=== PATIENT | male | born 1950 | race Caucasian/White ===

== ENCOUNTER → 2017-06-28 16:42 | Outpatient (CLI) | payer MEDICARE, BC ==
[2017-06-28 18:01] LABS: CHOL - HDL RATIO 4.3 ratio (2.3-4.9); LDL-HDL RATIO 2.7 ratio (1.5-3.5)
== END | disposition home or self-care (01) ==
LOC: D.LABREF 16:42
PROVIDERS: Internal Medicine Cardiovascular Disease
DX: E78.5 Hyperlipidemia, unspecified (principal)

== ENCOUNTER → 2018-03-27 11:52 | Outpatient (CLI) | payer MEDICARE, BC | END | disposition home or self-care (01) | LOC: D.US 11:52 | DX: I82.402 Acute embolism and thrombosis of unspecified deep veins of left lower extremity (principal) ==

== ENCOUNTER 2019-04-01 14:19 | Inpatient (IN) | payer MEDICARE, BC ==
[~2019-04-01] VITALS: Ht 177.8 cm; Wt 156.8 kg
--- NOTE | 2019-04-01 15:00 | NUR ---
RECEIVED PT DIRECT ADMIT. C/O LOWER BACK PAIN. NO S/S OF ACUTE DISTRESS NOTED. VITALS STABLE. IV SITED TO LEFT FOREARM, X2 STICKS. NS INFUSING @ 50ML/HR. SITE PATENT WITHOUT REDNESS OR SWELLING. PT DENIES ANY NEEDS. CALL LIGHT IN REACH. WILL CONTINUE TO MONITOR.
[2019-04-01 15:21] LABS: BASOPHILS 0.3 % (0-2); EOSINOPHILS 0.4 % (0-7); HEMATOCRIT 38.4 % (42.0-54.0); HEMOGLOBIN 12.7 g/dL (13.5-17.5); IMMATURE GRANULOCYTES 0.7 % (0-5); LYMPHOCYTES 19.4 % (15-50); MCH 28.9 pg (26.0-34.0); MCHC 33.1 g/dL (31.0-37.0); MCV 87.5 fL (80.0-100.0); MEAN PLATELET VOLUME 10.2 fL (7.4-10.4); MONOCYTES 6.1 % (2-11); NEUTROPHILS 73.1 % (40-80); PLATELET COUNT 152 10x3/uL (130-400); RBC 4.39 10x6/uL (4.20-6.10); RDW 13.8 % (11.5-14.5); WBC 6.9 10x3/uL (4.8-10.8)
[2019-04-01 15:28] LABS: INR 1.22 (0.85-1.17); PROTIME 14.8 SECONDS (11.6-15.0)
[2019-04-01 15:42] LABS: ALBUMIN 3.9 g/dL (3.4-5.0); ALKALINE PHOSPHATASE 81 U/L (46-116); ALT (SGPT) 28 U/L (10-68); BILIRUBIN - TOTAL 0.39 mg/dL (0.2-1.3); CALC OSMOLALITY 282 mosm/kg (275-300); CALCIUM 9.2 mg/dL (8.5-10.1); CARBON DIOXIDE 30.4 mmol/L (21.0-32.0); CHLORIDE - SERUM 102 mmol/L (98-107); GLUCOSE 120 mg/dL (74-106); POTASSIUM - SERUM 4.1 mmol/L (3.5-5.1); PROTEIN - SERUM 6.8 g/dL (6.4-8.2); SODIUM 141 mmol/L (136-145); UREA NITROGEN 14 mg/dL (7-18); eGFR NON AFRICAN AMERICAN 79 mL/min (90-120)
[2019-04-01 15:50] LABS: C-REACTIVE PROTEIN 0.2 mg/dL (0.0-0.9)
[2019-04-01 16:39] LABS: ERYTHROCYTE SEDIMENTATION RATE 14 mm/hr (0-20)
--- NOTE | 2019-04-01 18:22 | NUR ---
PT HAVING AN MRI, NOT BACK IN ROOM.
[2019-04-01 20:14] VITALS: BP 173/74
--- NOTE | 2019-04-01 20:20 | NUR ---
LYING IN BED. ALERT AND ORIENTED X4. RESP EVEN AND NONLABORED. REPORTS PAIN IN BACK 2 ON PAIN SCALE. AMB WITH CANE. IV INFILTRATED AND REMOVED PER OFFGOING NURSE. PT REFUSED TO HAVE IV RESTARTED. NOTIFIED FRANTZ SWANSON OF THIS. SR ELEVATED X2. CL IN REACH.
--- NOTE | 2019-04-01 22:45 | NUR ---
MEDICATED WITH PERCOCET ORDERED FOR C/O BACK PAIN. SR ELEVATED X2. CL IN REACH.
[2019-04-01 22:48] VITALS: BP 173/74; Ht 177.8 cm; Wt 156.8 kg
[2019-04-02 00:41] VITALS: BP 175/87
--- NOTE | 2019-04-02 02:39 | NUR ---
HAS RESTED WELL TONIGHT. CPAP IN USE. NO DISTRESS. CL IN REACH.
[2019-04-02 04:35] VITALS: BP 142/78
--- NOTE | 2019-04-02 04:45 | NUR ---
RESTING WITH EYES CLOSED. RESP EVEN AND NONLABORED. CPAP IN USE. NO DISTRESS. CL IN REACH.
--- NOTE | 2019-04-02 05:48 | NUR ---
MEDICATED WITH PERCOCET FOR C/O PAIN IN BACK RATING 2. STATES HE SLEPT WELL IN HIS BED AND HIS BACK WAS FEELING BETTER. CL IN REACH.
[2019-04-02 06:55] LABS: BASOPHILS 0.2 % (0-2); EOSINOPHILS 0.6 % (0-7); HEMATOCRIT 35.2 % (42.0-54.0); HEMOGLOBIN 11.4 g/dL (13.5-17.5); IMMATURE GRANULOCYTES 0.6 % (0-5); LYMPHOCYTES 34.8 % (15-50); MCH 28.1 pg (26.0-34.0); MCHC 32.4 g/dL (31.0-37.0); MCV 86.9 fL (80.0-100.0); MEAN PLATELET VOLUME 10.5 fL (7.4-10.4); MONOCYTES 8.7 % (2-11); NEUTROPHILS 55.1 % (40-80); PLATELET COUNT 134 10x3/uL (130-400); RBC 4.05 10x6/uL (4.20-6.10); RDW 13.8 % (11.5-14.5)
[2019-04-02 07:24] LABS: ALBUMIN 3.2 g/dL (3.4-5.0); ALKALINE PHOSPHATASE 67 U/L (46-116); ALT (SGPT) 25 U/L (10-68); BILIRUBIN - TOTAL 0.44 mg/dL (0.2-1.3); CALC OSMOLALITY 282 mosm/kg (275-300); CALCIUM 8.7 mg/dL (8.5-10.1); CARBON DIOXIDE 30.3 mmol/L (21.0-32.0); CHLORIDE - SERUM 105 mmol/L (98-107); CREATININE - SERUM 0.9 mg/dL (0.6-1.3); GLUCOSE 109 mg/dL (74-106); POTASSIUM - SERUM 4.2 mmol/L (3.5-5.1); PROTEIN - SERUM 5.8 g/dL (6.4-8.2); SODIUM 141 mmol/L (136-145); UREA NITROGEN 15 mg/dL (7-18); eGFR NON AFRICAN AMERICAN 89 mL/min (90-120)
[2019-04-02 08:28] VITALS: BP 161/69
--- NOTE | 2019-04-02 10:47 | NUR ---
PATIENT RESTING WITH NO DISTRESS. REPORTS PAIN WITH MOVEMENT TO BACK, PERCOCET RELIEVES PAIN. PATIENT IS SCHEDULED FOR EPIDURAL STEROIDS IN AM.
[2019-04-02] MEDS ORDERED: PERCOCET 10-321 EAC1 PO (11:12)
[2019-04-02] MEDS ORDERED: XARELTO20 MG PO (11:20)
[2019-04-02] MEDS ORDERED: OMEPRAZOLE CAP 20M (11:21)
[2019-04-02] MEDS ORDERED: PIOGLITAZONE15 MG PO (11:21)
[2019-04-02] MEDS ORDERED: GLYBURIDE MICRON3 MG PO (11:21)
[2019-04-02] MEDS ORDERED: SHINGRIX (11:21)
[2019-04-02] MEDS ORDERED: TENORMIN50 MG PO (11:22)
[2019-04-02] MEDS ORDERED: NEURONTIN 300300 MG PO (11:22)
[2019-04-02] MEDS ORDERED: K-DUR20 MEQ PO (11:23)
[2019-04-02] MEDS ORDERED: LOSARTAN/HCT TAB 100 ×2 (11:23→11:24)
[2019-04-02] MEDS ORDERED: METFORMIN HCL500 M1 PO (11:23)
[2019-04-02] MEDS ORDERED: FUROSEMIDE40 MG PO (11:23)
[2019-04-02] MEDS ORDERED: MEDROL DOSE PACK4 MG (11:23)
[2019-04-02] MEDS ORDERED: ROBAXIN500 MG PO (11:31)
[2019-04-02] MEDS ORDERED: COZAAR100 MG PO (11:32)
[2019-04-02 12:37] VITALS: BP 150/67
--- NOTE | 2019-04-02 16:33 | MORECARE ---
CASE MANAGEMENT DISCHARGE SUMMARY PATIENT: VICTOR MANUEL PAIGE UNIT: [id number] ADM DATE: 04/01/19 AGE: 68 : 50 SEX: M ROOM/BED: D.2240 AUTHOR: JOSE D,DOC PHYSICIAN: REFERRING PHYSICIAN: DALE GREENBERG MD DATE OF SERVICE: 04/02/19 Discharge Plan Patient Name: VICTOR MANUEL PAIGE Facility: [facility]:[place] : 1950 Planned Disposition: Home Anticipated Discharge Date: 04/03/19 Discharge Date: Expected LOS: 2 Initial Reviewer: [email or web address] Initial Review Date: 04/02/2019 Generated: 04/02/19 5:33 pm Comments DCP- Discharge Planning Updated by [email or web address]: Nanda Hall on 04/02/19 3:[address] Patient Name: VICTOR MANUEL PAIGE Admission Status: Elective Accout number: [id number] Admission Date: 04-01-2019 : 1950 Admission Diagnosis:INTERVERTEBRAL DISC DISORDERS W RADICULOPATHY, LUMBAR R Attending: YARI, Current LOS: 1 Anticipated DC Date: 04-03-2019 Planned Disposition: Home Primary Insurance: MEDICARE A & B Discharge Planning Comments: CM met with patient to complete initial dc planning assessment. CM educated patient on the CM role and verbal consent given by patient to complete assessment. Patient lives at home with his . At discharge patient plans to return home and feels this is a safe discharge. CM discussed the availability of rehab services, home health and medical equipment. Patient denies any discharge needs at this time. CM will continue to follow and assist with discharge planning/needs. Die Inspector: Nanda Hall DCPIA - Discharge Planning Initial Assessment Updated by [email or web address]: Nanda Hall on 04/02/19 4:25 pm * Is the patient Alert and Oriented? Yes * How many steps to enter\exit or inside your home? 3/0 * PCP Dr. Greenberg * Pharmacy [facility] * Preadmission Environment Home with Family * ADLs Partial Dependent * Partial ADLs (Assistance needed) Ambulation * Equipment Cane CPAP * List name and contact numbers for known caregivers / representatives who currently or will assist patient after discharge: Jessica Paige - spouse - [phone] * Verbal permission to speak to the caregivers and representatives has been obtained from the patient. Yes * Community resources currently utilized None * Additional services required to return to the preadmission environment? No * Can the patient safely return to the preadmission environment? Yes * Has this patient been hospitalized within the prior 30 days at any hospital? No Patient Name: VICTOR MANUEL PAIGE Page [id number] at 1633 All edits/amendments must be made on the electronic document DICTATION DATE: 04/02/19 163 SERVICE CONTROL OPERATOR: CHERRI 04/02/19 1633 RPT#: [id number] DC DATE: STATUS: ADM IN [facility] [address] [place] [address] END OF REPORT
[2019-04-02 16:45] VITALS: BP 153/56
--- NOTE | 2019-04-02 20:00 | NUR ---
ALERT SITTING UP ON SIDE OF BED, REPORTS BACK PAIN WITH MOVEMENT, SEE SHIFT ASSESSMENT, CALL LIGHT IN REACH
[2019-04-02 20:47] VITALS: BP 164/80
[2019-04-03 00:36] VITALS: BP 178/80
[2019-04-03 05:08] VITALS: BP 163/82
--- NOTE | 2019-04-03 07:37 | NUR ---
ALERT AND ORIENTED. LUNGS CLEAR BILATERALLY IN ALL CHOI. HEART SOUNDS S1 AND S2 HEARD IN ALL CHOI. BOWEL SOUNDS ACTIVE X 4. SKIN INTACT WITHOUT REDNESS. NO IV. STATES IV OUT X 2 DAYS AND DOES NOT NEED OR WANT NEW IV. DENIES PAIN. DENIES NEEDS. BED LOW. CALL POST AND PERSONAL ITEMS IN REACH. WILL CONTINUE TO MONITOR.
[2019-04-03 07:42] LABS: BASOPHILS 0.2 % (0-2); EOSINOPHILS 0.5 % (0-7); HEMATOCRIT 37.9 % (42.0-54.0); HEMOGLOBIN 12.5 g/dL (13.5-17.5); IMMATURE GRANULOCYTES 0.9 % (0-5); LYMPHOCYTES 27.7 % (15-50); MCH 28.7 pg (26.0-34.0); MCV 87.1 fL (80.0-100.0); MEAN PLATELET VOLUME 10.6 fL (7.4-10.4); MONOCYTES 7.8 % (2-11); NEUTROPHILS 62.9 % (40-80); PLATELET COUNT 145 10x3/uL (130-400); RBC 4.35 10x6/uL (4.20-6.10); WBC 5.7 10x3/uL (4.8-10.8)
[2019-04-03 08:03] LABS: ALBUMIN 3.7 g/dL (3.4-5.0); ALKALINE PHOSPHATASE 76 U/L (46-116); ALT (SGPT) 28 U/L (10-68); BILIRUBIN - TOTAL 0.51 mg/dL (0.2-1.3); CALC OSMOLALITY 284 mosm/kg (275-300); CARBON DIOXIDE 32.3 mmol/L (21.0-32.0); CHLORIDE - SERUM 103 mmol/L (98-107); CREATININE - SERUM 0.9 mg/dL (0.6-1.3); GLUCOSE 109 mg/dL (74-106); PROTEIN - SERUM 6.6 g/dL (6.4-8.2); SODIUM 142 mmol/L (136-145); UREA NITROGEN 16 mg/dL (7-18); eGFR NON AFRICAN AMERICAN 89 mL/min (90-120)
[2019-04-03 08:50] VITALS: BP 141/72
--- NOTE | 2019-04-03 09:40 | NUR ---
SPOKE WITH PHARMACY ABOUT PT DIABETA NOT AVAILABLE. STATED WILL BRING TO FLOOR.
--- NOTE | 2019-04-03 10:34 | NUR ---
RESTING IN BED. DENIES PAIN. DENIES NEEDS. WILL CONTINUE TO MONITOR.
[2019-04-03] MEDS ORDERED: MIRALAX17 GM PO (10:57)
[2019-04-03] MEDS ORDERED: DULCOLAX10 MG/SUPP RC (10:57)
[2019-04-03] MEDS ORDERED: COLACE100 MG PO (10:57)
[2019-04-03] MEDS ORDERED: LOVENOX40 MG/0.4 SC (10:57)
--- NOTE | 2019-04-03 11:23 | NUR ---
PATIENT STATES DOES NOT WANT FENTANYL PATCH UNTIL GETS TO HOSPITAL.
[2019-04-03] MEDS ORDERED: DURAGESIC1 PATCH .7 TRANSDERM (11:28)
[2019-04-03 12:14] VITALS: BP 150/63
[2019-04-03] MEDS ORDERED: ROBAXIN500 MG PO (12:53)
--- NOTE | 2019-04-03 14:10 | MORECARE ---
CASE MANAGEMENT DISCHARGE SUMMARY PATIENT: VICTOR MANUEL PAIGE UNIT: [id number] ADM DATE: 04/01/19 AGE: 68 : 50 SEX: M ROOM/BED: D.2240 AUTHOR: JOSE DDOC PHYSICIAN: REFERRING PHYSICIAN: DALE GREENBERG MD DATE OF SERVICE: 04/03/19 Discharge Plan Patient Name: VICTOR MANUEL PAIGE Facility: [facility]:[place] : 1950 Planned Disposition: Home Anticipated Discharge Date: 04/03/19 Discharge Date: Expected LOS: 2 Initial Reviewer: [email or web address] Initial Review Date: 04/02/2019 Generated: 04/03/19 3:10 pm Comments DCP- Discharge Planning Updated by [id number]: Nanda Hall on 04/03/19 1:[address] Patient Name: VICTOR MANUEL PAIGE Encounter No: [id number] : 1950 Primary Insurance: MEDICARE A & B Anticipated DC Date: 04-03-2019 Planned Disposition: Home External Planned Provider: : DCP follow-up note: Patient and family in agreement with discharge plan. No changes to plan. Case management will follow and assist as needed. Nanda Hall DCP- Discharge Planning Updated by [email or web address]: Nanda Hall on 04/02/19 3:[address] Patient Name: VICTOR MANUEL PAIGE Admission Status: Elective Accout number: [id number] Admission Date: 04-01-2019 : 1950 Admission Diagnosis:INTERVERTEBRAL DISC DISORDERS W RADICULOPATHY, LUMBAR R Attending: YARI, Current LOS: 1 Anticipated DC Date: 04-03-2019 Planned Disposition: Home Primary Insurance: MEDICARE A & B Discharge Planning Comments: CM met with patient to complete initial dc planning assessment. CM educated patient on the CM role and verbal consent given by patient to complete assessment. Patient lives at home with his . At discharge patient plans to return home and feels this is a safe discharge. CM discussed the availability of rehab services, home health and medical equipment. Patient denies any discharge needs at this time. CM will continue to follow and assist with discharge planning/needs. Inspector Coated Fabrics: Nanda Hall DCPIA - Discharge Planning Initial Assessment Updated by [email or web address]: Nanda Hall on 04/02/19 4:25 pm * Is the patient Alert and Oriented? Yes * How many steps to enter\exit or inside your home? 3/0 * PCP Dr. Greenberg * Pharmacy [facility] * Preadmission Environment Home with Family * ADLs Partial Dependent * Partial ADLs (Assistance needed) Ambulation * Equipment Cane CPAP * List name and contact numbers for known caregivers / representatives who currently or will assist patient after discharge: Jessica Paige - spouse - [phone] * Verbal permission to speak to the caregivers and representatives has been obtained from the patient. Yes * Community resources currently utilized None * Additional services required to return to the preadmission environment? No * Can the patient safely return to the preadmission environment? Yes * Has this patient been hospitalized within the prior 30 days at any hospital? No Coverage Notice Reviewer: [email or web address] Regulo Hall Notice Issued Date-Time: 04/03/2019 12:00 Notice Type: IM Discharge Notice Notice Delivered To: Patient Relationship to Patient: Self Sawmill Moulder Operator Name: Delivery Method: HAND - Hand Delivered Riana Days: Prior Verbal Notification: Recipient Understood Notice: Yes Recipient Signature: Yes Med Rec Note Co-signed by Attending: Coverage Notice Comment: IMM explained, signed, given, copy placed in MR Last DP export: 04/02/19 3:33 pm Patient Name: VICTOR MANUEL PAIGE Page [id number] at 1410 All edits/amendments must be made on the electronic document DICTATION DATE: 04/03/191408 SIDE STAPLER: CHERRI 04/03/191408 RPT#: [id number] DC DATE: STATUS: ADM IN [facility] [address] [place] [address] END OF REPORT
--- NOTE | 2019-04-03 14:25 | NUR ---
DISCHARGE EDUCATION PROVIDED BOTH WRITTEN AND VERBAL. VERBALIZED UNDERSTANDING. DENIES FURTHER QUESTIONS. AT BEDSIDE VERBALIZED UNDERSTANDING. PATIENT REFUSES FENTANYL PATCH. DENIES FURTHER NEEDS. PATIENT DISCHARGED HOME WITH WITH ALL BELONGINGS.
--- NOTE | 2019-04-07 12:41 | MORECARE ---
CASE MANAGEMENT DISCHARGE SUMMARY PATIENT: VICTOR MANUEL PAIGE UNIT: [id number] ADM DATE: 04/01/19 AGE: 68 : 50 SEX: M ROOM/BED: D.2240 AUTHOR: JOSE DDOC PHYSICIAN: REFERRING PHYSICIAN: DALE GREENBERG MD DATE OF SERVICE: 04/07/19 Discharge Plan Patient Name: VICTOR MANUEL PAIGE Facility: [facility]:[place] : 1950 Planned Disposition: Home Anticipated Discharge Date: 04/03/19 Discharge Date: 04/03/2019 Expected LOS: 2 Initial Reviewer: [email or web address] Initial Review Date: 04/02/2019 Generated: 04/07/19 1:40 pm DCP- Discharge Planning Updated by [email or web address]: Nanda Hall on 04/03/19 1:[address] Patient Name: VICTOR MANUEL PAIGE Encounter No: [id number] : 1950 Primary Insurance: MEDICARE A & B Anticipated DC Date: 04-03-2019 Planned Disposition: Home External Planned Provider: : DCP follow-up note: Patient and family in agreement with discharge plan. No changes to plan. Case management will follow and assist as needed. Nanda Hall DCP- Discharge Planning Updated by [email or web address]: Nanda Hall on 04/02/19 3:[address] Patient Name: VICTOR MANUEL PAIGE Admission Status: Elective Accout number: [id number] Admission Date: 04-01-2019 : 1950 Admission Diagnosis:INTERVERTEBRAL DISC DISORDERS W RADICULOPATHY, LUMBAR R Attending: YARI, Current LOS: 1 Anticipated DC Date: 04-03-2019 Planned Disposition: Home Primary Insurance: MEDICARE A & B Discharge Planning Comments: CM met with patient to complete initial dc planning assessment. CM educated patient on the CM role and verbal consent given by patient to complete assessment. Patient lives at home with his . At discharge patient plans to return home and feels this is a safe discharge. CM discussed the availability of rehab services, home health and medical equipment. Patient denies any discharge needs at this time. CM will continue to follow and assist with discharge planning/needs. Educator Senior Clinical: Nanda Hall DCPIA - Discharge Planning Initial Assessment Updated by [email or web address]: Nanda Hall on 04/02/19 4:25 pm * Is the patient Alert and Oriented? Yes * How many steps to enter\exit or inside your home? 3/0 * PCP Dr. Greenberg * Pharmacy [facility] * Preadmission Environment Home with Family * ADLs Partial Dependent * Partial ADLs (Assistance needed) Ambulation * Equipment Cane CPAP * List name and contact numbers for known caregivers / representatives who currently or will assist patient after discharge: Jessica Paige - spouse - [phone] * Verbal permission to speak to the caregivers and representatives has been obtained from the patient. Yes * Community resources currently utilized None * Additional services required to return to the preadmission environment? No * Can the patient safely return to the preadmission environment? Yes * Has this patient been hospitalized within the prior 30 days at any hospital? No Coverage Notice Reviewer: [id number] - Nanda Hall Notice Issued Date-Time: 04/03/2019 12:00 Notice Type: IM Discharge Notice Notice Delivered To: Patient Relationship to Patient: Self Wool Sacker Name: Delivery Method: HAND - Hand Delivered Riana Days: Prior Verbal Notification: Recipient Understood Notice: Yes Recipient Signature: Yes Med Rec Note Co-signed by Attending: Coverage Notice Comment: IMM explained, signed, given, copy placed in MR Last DP export: 04/03/19 1:10 pm Patient Name: VICTOR MANUEL PAIGE Page 28204 at 1241 All edits/amendments must be made on the electronic document DICTATION DATE: 04/07/19 124 COUNTER WAITRESS/WAITER: CHERRI 04/07/19 1240 RPT#: [id number] DC DATE:04/03/19 STATUS: DIS IN [facility] [address] [facility] [address] END OF REPORT
== END 2019-04-03 14:26 | disposition home or self-care (01) | DRG 552 ==
LOC: D.MS 14:19
PROVIDERS: Family Medicine; ADMIT Family Medicine; ATTEND Family Medicine
DX: M51.16 Intervertebral disc disorders with radiculopathy, lumbar region (principal); Z68.42 Body mass index [BMI] 45.0-49.9, adult; M48.061 Spinal stenosis, lumbar region without neurogenic claudication; E11.65 Type 2 diabetes mellitus with hyperglycemia; I10 Essential (primary) hypertension; G47.33 Obstructive sleep apnea (adult) (pediatric); K21.9 Gastro-esophageal reflux disease without esophagitis; K57.90 Diverticulosis of intestine, part unspecified, without perforation or abscess without bleeding; E66.01 Morbid (severe) obesity due to excess calories

== ENCOUNTER → 2019-04-07 07:52 | Outpatient (CLI) | payer MEDICARE, BC ==
[2019-04-01 22:48] VITALS: BMI 49.6
--- NOTE | ~2019-04-07 | HEMODYNAMI ---
PATIENT:VICTOR MANUEL PAIGE MEDICAL RECORD: [id number] : [birth year] LOCATION:D. ADMISSION DATE: 04/07/19 Generatedon:04/07/20199:03 Patient name: VICTOR MANUEL PAIGE Patient #: [id number] SSN: DO B: 1950 Date of study: 04/07/2019 Page: Of Hemodynamic Procedure Report Patient Data Patient Demographics Procedure consent was obtained First Name: VICTOR MANUEL Gender: Male Last Name: ROYAL : 1950 Patient #: [id number] Age: 68 year(s) Race: Unknown Additional ID: [id number] Contact details [address]: [address] [place] [address] State: [place] City: [place] Zip code: [address] Admission Admission Data Admission Date: 04/07/2019 Admission Time: 7:52 Procedure Procedure Types Cath Procedure Peripheral Cath Diagnostic Procedure Miscellaneous Epidural Steroid Injection Procedure Description Procedure Date Procedure Date: 04/07/2019 Procedure Start Time: 8:33 Procedure Staff Name Function Spike Herndon MD Performing Physician Davina Avelar RT Car Coupler Jonny Sanabria RT Scrub Procedure Data Cath Procedure Fluoroscopy Diagnostic fluoroscopy Total fluoroscopy Time: 0.2 time: 0.2 min min Diagnostic fluoroscopy Total fluoroscopy dose: 7 dose: 7 mGy mGy Hemodynamics Rest Pre Cath Intra NCS Post Cath Procedure Log Time Note 8:25:50 Time tracking: Regular hours (M-F 7:00 - 5:00) 8:25:57 Patient received from Other to IR Alert and oriented. Tansferred to table in Prone position. 8:26:01 Signed procedure consent form obtained from patient. 8:26:13 Family in waiting room. 8:26:53 PATIENT ALLERGIC TO DIAZEPAM 8:27:11 Was the patient premedicated? No 8:27:19 8:27:33 Lumbar area was prepped with betadine and draped in sterile fashion 8:27:36 8:27:44 KIT EPIDURAL CATHETERIZATION opened to sterile field. 8:27:48 8:30:00 Physician arrived 8:32:39 --------ALL STOP TIME OUT------ 8:32:40 Final Timeout: patient, procedure, and site verified with staff and physician. All members of the team are in agreement. 8:33:15 Full Disclosure recording started 8:33:15 Procedure started. 8:33:59 Local anesthetic to Lumbar area with Lidocaine 1% by Spike Herndon MD.INITIAL ACCESS ONLY 8:50:38 STEROID INJECTED INTO L 3 8:55:48 Procedure ended.(Physican Out) 9:00:21 Fluoroscopy time 00.20 minutes. 9:00:24 Fluoroscopy dose: 7 mGy 9:00:24 Flurop Dose total: 7 9:03:16 Procedure and supply charges have been captured, reviewed, submitted and are correct. 9:03:23 Patient transfered to Other with Wheelchair. Device Usage Item Name Manufacture Quantity Catalog Hospital Part Current Minima l Lot# / Number Charge Number Stock Stock Serial# Code KIT EPIDURAL Teleflex 1 [id number] CATHETERIZATION Signature Audit Ruby Stage Time Signature Unsigned Intra-Procedure 04/07/2019 Davina Avelar 9:03:38 AM (R) [facility] [address] [place] [address]
[~2019-04-07 07:52] MED LIST: COLACE100 MG PO; COZAAR100 MG PO; DULCOLAX10 MG/SUPP RC; DURAGESIC1 PATCH .7 TRANSDERM; FUROSEMIDE40 MG PO; GLYBURIDE MICRON3 MG PO; K-DUR20 MEQ PO; LOSARTAN/HCT TAB 100; LOVENOX40 MG/0.4 SC; MEDROL DOSE PACK4 MG; METFORMIN HCL500 M1 PO; MIRALAX17 GM PO; NEURONTIN 300300 MG PO; OMEPRAZOLE CAP 20M; PERCOCET 10-321 EAC1 PO; PIOGLITAZONE15 MG PO; ROBAXIN500 MG PO; SHINGRIX; TENORMIN50 MG PO; XARELTO20 MG PO
== END | disposition home or self-care (01) ==
LOC: D.SP 07:52
PROVIDERS: ATTEND General Practice
DX: M54.5 Low back pain (principal); M51.26 Other intervertebral disc displacement, lumbar region; M48.061 Spinal stenosis, lumbar region without neurogenic claudication

== ENCOUNTER 2019-05-08 05:52 | Day surgery (SDC) | payer MEDICARE, BC ==
[~2019-05-08] VITALS: Ht 177.8 cm; Wt 152.0 kg
[~2019-05-08 05:52] MED LIST changes: +LOSARTAN/HCT PO; -OMEPRAZOLE CAP 20M; +OMEPRAZOLE PO
[2019-05-08 06:16] LABS: HEMATOCRIT 41.6 % (42.0-54.0); HEMOGLOBIN 13.4 g/dL (13.5-17.5); MCH 28.9 pg (26.0-34.0); MCHC 32.2 g/dL (31.0-37.0); MCV 89.7 fL (80.0-100.0); MEAN PLATELET VOLUME 10.7 fL (7.4-10.4); RBC 4.64 10x6/uL (4.20-6.10); RDW 13.5 % (11.5-14.5); WBC 7.2 10x3/uL (4.8-10.8)
[2019-05-08 06:23] LABS: ANION GAP 14.7 mmol/L (8-16); CALCIUM 9.2 mg/dL (8.5-10.1); CARBON DIOXIDE 28.9 mmol/L (21.0-32.0); CREATININE - SERUM 1.1 mg/dL (0.6-1.3); POTASSIUM - SERUM 3.6 mmol/L (3.5-5.1)
[2019-05-08 06:37] LABS: APTT 30.8 SECONDS (22.8-39.4); INR 0.99 (0.85-1.17); PROTIME 12.6 SECONDS (11.6-15.0)
[2019-05-08] MEDS ORDERED: DURAGESIC1 PATCH .1 TRANSDERM (06:43)
[2019-05-08] MEDS ORDERED: XARELTO20 MG PO (06:44)
[2019-05-08 06:49] VITALS: BP 129/62; Ht 177.8 cm; Wt 152.0 kg
--- NOTE | 2019-05-08 10:56 | NUR ---
MEETS ANESTHESIA DISCHARGE CRITERIA
--- NOTE | 2019-05-08 16:12 | OP ---
PATIENT NAME: VICTOR MANUEL PAIGE MEDICAL RECORD: [id number] :[birth year] LOCATION:[facility] ADMISSION DATE: SURGEON: JULIOCESAR NEGRETE MD DATE OF OPERATION: 05/08/2019 PREOPERATIVE DIAGNOSES: Lumbar spinal stenosis and foraminal stenosis at L3-L4 left and L4-L5 left. Disc protrusion at L3-L4, left. PROCEDURES: Lumbar laminotomy, medial facetectomy and foraminotomy at L3-L4 and L4-L5 on the left with METRx retractor. SURGEON: Juliocesar Negrete MD DESCRIPTION AND TECHNIQUE: After induction of general endotracheal anesthesia, the patient was rolled prone on a John Paul frame. Lumbar spine was prepped and draped in usual sterile fashion. Fluoroscopic x-ray and spinal needle localized the L3-L4 interspace on the left side. A stab incision was created with a #11 blade and series of dilators were used to advance a METRx retractor to the L3-L4 interspace on the left side. Level was confirmed with fluoroscopic x-ray. A Midas Cruz drill and microscope were used to perform a laminectomy at L3, L4 and L5 on the left. Hypertrophied ligamentum flavum was removed with Cloward rongeurs. Following this, the L3, L4 and L5 nerve roots were decompressed well. Meticulous hemostasis was maintained throughout the wound. The L3-L4 disc space was inspected on the left side and was found to be calcified, therefore no discectomy took place. The retractor was removed. The fascia was closed with 2-0 Vicryl suture. Subdermal layer was closed with 3-0 Vicryl suture. The skin was closed with bree. A sterile dressing was applied to the wound. The patient was awakened in good condition and taken to recovery. All counts were reported as correct. Estimated blood loss was minimal. TRANSINT:[id number] Voice Confirmation ID: [id number] DOCUMENT ID: [id number] JULIOCESAR NEGRETE MD at 1612 CC: [id number] DICTATION DATE: 05/08/19 1357 JAVA ANALYST: 05/08/19 1429 REG [facility] [address] [place] [address]
--- NOTE | 2019-05-08 16:23 | NUR ---
1300 PT STATES HE FEELS ABLE TO GO HOME. DR. NEGRETE OFFERED A CHOICE OF STAYING OVERNIGHT OR RETURNING HOME. WILL RX WITH [facility] BEFORE LEAVING AT PTS REQUEST
== END 2019-05-08 14:20 | disposition home or self-care (01) ==
LOC: D.OPS 05:52 → D.PAN 07:30 → D.OPS 07:30
PROVIDERS: Anesthesiology; ATTEND Neurological Surgery
DX: M48.061 Spinal stenosis, lumbar region without neurogenic claudication (principal); M51.26 Other intervertebral disc displacement, lumbar region

== ENCOUNTER 2019-05-16 13:48 | Inpatient (IN) | payer MEDICARE, BC ==
[~2019-05-16] VITALS: Ht 177.8 cm; Wt 150.0 kg
[~2019-05-16 13:48] MED LIST changes: +DURAGESIC1 PATCH .1 TRANSDERM
[2019-05-16] MEDS ORDERED: PERCOCET 10-321 EAC1 PO (14:26)
[2019-05-16 14:32] VITALS: BP 140/74; Ht 177.8 cm; Wt 150.0 kg
--- NOTE | 2019-05-16 14:45 | NUR ---
IV STARTED TO RT. F/A WITH HAMMER REPAIRER MORPHINE STARTED AT PRESCRIBED RATE. GENERALIZED PAIN NOTED TO BACK. ENCOURAGED TO USE CALL LIGHT FOR ASSIST.
[2019-05-16 16:57] VITALS: BP 126/76
[2019-05-16 19:28] LABS: BASOPHILS 0.1 % (0-2); EOSINOPHILS 0.2 % (0-7); HEMATOCRIT 38.8 % (42.0-54.0); HEMOGLOBIN 12.7 g/dL (13.5-17.5); IMMATURE GRANULOCYTES 1.7 % (0-5); LYMPHOCYTES 16.1 % (15-50); MCH 28.9 pg (26.0-34.0); MCHC 32.7 g/dL (31.0-37.0); MCV 88.4 fL (80.0-100.0); MEAN PLATELET VOLUME 10.1 fL (7.4-10.4); MONOCYTES 7.2 % (2-11); NEUTROPHILS 74.7 % (40-80); RBC 4.39 10x6/uL (4.20-6.10); RDW 13.3 % (11.5-14.5); WBC 12.1 10x3/uL (4.8-10.8)
[2019-05-16 19:30] LABS: PLATELET COUNT 241 10x3/uL (130-400)
[2019-05-16 19:42] LABS: APTT 29.5 SECONDS (22.8-39.4); INR 1.13 (0.85-1.17)
[2019-05-16 19:43] LABS: ALBUMIN 3.5 g/dL (3.4-5.0); ANION GAP 13.4 mmol/L (8-16); BILIRUBIN - TOTAL 0.31 mg/dL (0.2-1.3); CALCIUM 9.6 mg/dL (8.5-10.1); CARBON DIOXIDE 28.4 mmol/L (21.0-32.0); CREATININE - SERUM 1.2 mg/dL (0.6-1.3); POTASSIUM - SERUM 3.8 mmol/L (3.5-5.1); PROTEIN - SERUM 6.5 g/dL (6.4-8.2)
[2019-05-16 20:00] VITALS: BP 120/64
[2019-05-17] VITALS: BP 117/60
--- NOTE | 2019-05-17 01:51 | NUR ---
I have reviewed this patient and I concur with the Shift Assessment completed by the Licensed Practical Nurse today this shift.
[2019-05-17 04:00] VITALS: BP 145/74
[2019-05-17 05:21] LABS: HEMATOCRIT 38.3 % (42.0-54.0); HEMOGLOBIN 12.3 g/dL (13.5-17.5); MCHC 32.1 g/dL (31.0-37.0); MCV 90.3 fL (80.0-100.0); MEAN PLATELET VOLUME 10.5 fL (7.4-10.4); PLATELET COUNT 222 10x3/uL (130-400); RBC 4.24 10x6/uL (4.20-6.10); RDW 13.6 % (11.5-14.5)
[2019-05-17 05:24] LABS: INR 1.06 (0.85-1.17); PROTIME 13.3 SECONDS (11.6-15.0)
[2019-05-17 05:40] LABS: ALBUMIN 3.1 g/dL (3.4-5.0); ALKALINE PHOSPHATASE 73 U/L (46-116); ALT (SGPT) 26 U/L (10-68); CALC OSMOLALITY 283 mosm/kg (275-300); CALCIUM 9.2 mg/dL (8.5-10.1); CARBON DIOXIDE 30.5 mmol/L (21.0-32.0); CHLORIDE - SERUM 103 mmol/L (98-107); GLUCOSE 109 mg/dL (74-106); MAGNESIUM - SERUM 1.7 mg/dL (1.8-2.4); POTASSIUM - SERUM 3.7 mmol/L (3.5-5.1); PROTEIN - SERUM 6.1 g/dL (6.4-8.2); SODIUM 139 mmol/L (136-145); UREA NITROGEN 27 mg/dL (7-18); eGFR NON AFRICAN AMERICAN 79 mL/min (90-120)
[2019-05-17 05:45] LABS: EOSINOPHILS 1 % (0-7); LYMPHOCYTES 30 % (15-50); MONOCYTES 10 % (2-11); NEUTROPHILS 57 % (40-80); PLATELET ESTIMATE NORMAL
--- NOTE | 2019-05-17 09:00 | NUR ---
ALERT AND ORIENTED X4. CPAP USED AT HS WITH LUNGS CTA. IVF INFUSING AT PRESCRIBD RATE WITH LEGAL ADVISOR MORPHINE EFFECTIVE WITH GENERALIZED WEAKNESS WITH PAIN ON MOVEMENT. NO PERIPHERAL EDEMA AND LUNGS CTA. ENCOURAGED TO USE CALL LIGHT FOR ASSIST. FALL PRECAUTIONS IN PLACE WITH SCD'S.
[2019-05-17 09:49] VITALS: BP 118/69
[2019-05-17 13:15] VITALS: BP 138/66
[2019-05-17 15:12] LABS: APPEARANCE CLEAR (CLEAR); BILIRUBIN NEGATIVE (NEGATIVE); COLOR STRAW (YELLOW); GLUCOSE NEGATIVE (NEGATIVE); KETONE NEGATIVE (NEGATIVE); NITRITE NEGATIVE (NEGATIVE); PROTEIN NEGATIVE (NEGATIVE); SPECIFIC GRAVITY 1.015 (1.005-1.020); UROBILINOGEN NORMAL (NORMAL)
[2019-05-17 16:36] VITALS: BP 112/62
[2019-05-17 20:22] VITALS: BP 104/64
[2019-05-18 00:21] VITALS: BP 138/62
--- NOTE | 2019-05-18 02:15 | NUR ---
PT RESTING IN BED. EYES CLOSED. NO SIGNS OF DISTRESS. BREATHING EVEN AND UNLABORED. IV SITE RT FA DRESSING CLEAN DRY AND INTACT. NO SIGNS OF INFECTION. LUNG SOUNDS CLEAR. BOWEL SOUNDS ACTIVE. SKIN CLEAN DRY AND INTACT. WILL CONTINUE PLAN OF CARE. CALL LIGHT IN REACH. BED LOWERED AND LOCKED. BED RAILS UPX2.
[2019-05-18 04:45] VITALS: BP 127/62
[2019-05-18 06:22] LABS: BASOPHILS 0.2 % (0-2); EOSINOPHILS 0.5 % (0-7); HEMATOCRIT 41.8 % (42.0-54.0); HEMOGLOBIN 13.2 g/dL (13.5-17.5); IMMATURE GRANULOCYTES 2.8 % (0-5); LYMPHOCYTES 23.5 % (15-50); MCH 28.7 pg (26.0-34.0); MCHC 31.6 g/dL (31.0-37.0); MCV 90.9 fL (80.0-100.0); MEAN PLATELET VOLUME 10.5 fL (7.4-10.4); MONOCYTES 7.8 % (2-11); NEUTROPHILS 65.2 % (40-80); PLATELET COUNT 217 10x3/uL (130-400); RDW 13.7 % (11.5-14.5); WBC 9.2 10x3/uL (4.8-10.8)
[2019-05-18 06:31] LABS: PROTIME 12.7 SECONDS (11.6-15.0)
[2019-05-18 06:34] LABS: ALBUMIN 3.4 g/dL (3.4-5.0); ALKALINE PHOSPHATASE 86 U/L (46-116); ALT (SGPT) 33 U/L (10-68); CALC OSMOLALITY 284 mosm/kg (275-300); CARBON DIOXIDE 31.3 mmol/L (21.0-32.0); CHLORIDE - SERUM 103 mmol/L (98-107); GLUCOSE 130 mg/dL (74-106); MAGNESIUM - SERUM 1.6 mg/dL (1.8-2.4); PROTEIN - SERUM 6.1 g/dL (6.4-8.2); SODIUM 139 mmol/L (136-145); UREA NITROGEN 26 mg/dL (7-18); eGFR NON AFRICAN AMERICAN 79 mL/min (90-120)
--- NOTE | 2019-05-18 07:50 | NUR ---
PT ASSISTED UP TO BATHROOM WITH SBA. IV AND LATHE MACHINIST INTACT. LUNGS CTA AND HRRR. NO PERIPHERAL EDEMA NOTED. PT PRE-OPED FOR SURGERY
--- NOTE | 2019-05-18 08:00 | NUR ---
PT LEFT FOR SURGERY UNDER CARE OF STAFF. STABLE AT TIME OF DEPARTURE.
[2019-05-18 08:25] VITALS: BP 141/78
[2019-05-18 11:08] VITALS: BP 152/58
--- NOTE | 2019-05-18 12:30 | NUR ---
PT RECEIVED BACK TO ROOM AND STABLE WITH IVF INFUSING AT PRESCRIBED RATE
[2019-05-18 12:38] VITALS: BP 150/59
--- NOTE | 2019-05-18 21:00 | NUR ---
INCISION ON BACK WITH RADHA, BLEEDING THROUGH DRESSING AND ONTO BED PAD. APPLIED 4X4 GAUZE AND BORDERED DRESSING. CHANGED BED PADS. FSBS 124 - NO INSULIN PER SS. MATERIALS MANAGER CONTROLLING PAIN. NO OTHER NEEDS. WILL CONTINUE TO MONITOR.
[2019-05-18 21:09] VITALS: BP 141/67
[2019-05-19 00:53] VITALS: BP 137/75
[2019-05-19 04:47] VITALS: BP 135/63
[2019-05-19 05:07] LABS: BASOPHILS 0.1 % (0-2); EOSINOPHILS 0.3 % (0-7); HEMATOCRIT 35.6 % (42.0-54.0); HEMOGLOBIN 11.2 g/dL (13.5-17.5); IMMATURE GRANULOCYTES 2.3 % (0-5); LYMPHOCYTES 18.1 % (15-50); MCH 28.4 pg (26.0-34.0); MCHC 31.5 g/dL (31.0-37.0); MCV 90.1 fL (80.0-100.0); NEUTROPHILS 72.2 % (40-80); PLATELET COUNT 216 10x3/uL (130-400); RBC 3.95 10x6/uL (4.20-6.10); RDW 13.5 % (11.5-14.5); WBC 10.2 10x3/uL (4.8-10.8)
[2019-05-19 05:34] LABS: INR 1.04 (0.85-1.17); PROTIME 13.1 SECONDS (11.6-15.0)
[2019-05-19 05:51] LABS: ALBUMIN 3.1 g/dL (3.4-5.0); ALKALINE PHOSPHATASE 92 U/L (46-116); ALT (SGPT) 36 U/L (10-68); CALC OSMOLALITY 285 mosm/kg (275-300); CALCIUM 8.6 mg/dL (8.5-10.1); CARBON DIOXIDE 30.8 mmol/L (21.0-32.0); CHLORIDE - SERUM 104 mmol/L (98-107); CREATININE - SERUM 0.8 mg/dL (0.6-1.3); MAGNESIUM - SERUM 1.8 mg/dL (1.8-2.4); POTASSIUM - SERUM 4.2 mmol/L (3.5-5.1); PROTEIN - SERUM 5.7 g/dL (6.4-8.2); SODIUM 142 mmol/L (136-145); UREA NITROGEN 24 mg/dL (7-18); eGFR NON AFRICAN AMERICAN > 90 mL/min (90-120)
[2019-05-19 05:55] LABS: GLUCOSE 82 mg/dL (74-106)
--- NOTE | 2019-05-19 08:00 | NUR ---
ASSESSMENT PER FLOW SHEET.PT IS WITHOUT DISTRESS.CALL LIGHT IN REACH. FALL PREVENTION IN PLACE
[2019-05-19 08:01] VITALS: BP 134/66
--- NOTE | 2019-05-19 11:33 | NUR ---
REHAB PRESCREEN Rehab referral received and chart reviewed. PT and OT evaluations have been ordered but not completed as of yet. Rehab will continue to follow this patient for admission criteria. Thank you for this referral! Nisa Langley, SHIPFITTERS SUPERVISOR Rehab PD
[2019-05-19 13:17] VITALS: BP 108/60
[2019-05-19 16:43] VITALS: BP 133/65
--- NOTE | 2019-05-19 17:11 | MORECARE ---
CASE MANAGEMENT DISCHARGE SUMMARY PATIENT: VICTOR MANUEL PAIGE UNIT: [id number] ADM DATE: 05/16/19 AGE: 68 : 50 SEX: M ROOM/BED: D.2233 AUTHOR: JOSE D,DOC PHYSICIAN: REFERRING PHYSICIAN: DALE GREENBERG MD DATE OF SERVICE: 05/19/19 Discharge Plan Patient Name: VICTOR MANUEL PAIGE Facility: [facility]:[place] : 1950 Planned Disposition: Inpatient Rehab Anticipated Discharge Date: Discharge Date: Expected LOS: Initial Reviewer: [email or web address] Initial Review Date: 05/19/2019 Generated: 05/19/19 6:11 pm Comments DCP- Discharge Planning Updated by [email or web address]: Nanda Hall on 05/19/19 4:[address] Patient Name: VICTOR MANUEL PAIGE Admission Status: Elective Accout number: [id number] Admission Date: 05-16-2019 : 1950 Admission Diagnosis: Attending: YARI, Current LOS: 3 Anticipated DC Date: Planned Disposition: Inpatient Rehab Primary Insurance: MEDICARE A & B Discharge Planning Comments: CM met with patient to complete initial dc planning assessment. CM educated patient on the CM role and verbal consent given by patient to complete assessment. Patient lives at home with his . States he is alone much of the day, because his is at work. CM discussed availability of home health, rehab services, and medical equipment. Patient states he is not getting around well yet, and plans to go to inpatient rehab here at [facility], a rehab screen has been ordered. He will also need a rolling walker on discharge. CM will continue to follow and will assist as needed with dc plans/needs. Roll Handler: Nanda Hall DCPIA - Discharge Planning Initial Assessment Updated by [email or web address]: Nanda Hall on 05/19/19 5:09 pm * Is the patient Alert and Oriented? Yes * How many steps to enter\exit or inside your home? 3/0 * PCP Dr. Greenberg * Pharmacy [facility] * Preadmission Environment Home with Family * ADLs Partial Dependent * Partial ADLs (Assistance needed) Ambulation * Equipment Cane CPAP * List name and contact numbers for known caregivers / representatives who currently or will assist patient after discharge: Jessica Paige - spouse - [phone] * Verbal permission to speak to the caregivers and representatives has been obtained from the patient. Yes * Community resources currently utilized None * Additional services required to return to the preadmission environment? Yes * Can the patient safely return to the preadmission environment? Yes * Has this patient been hospitalized within the prior 30 days at any hospital? No Patient Name: VICTOR MANUEL PAIGE Page 16601 at 1711 All edits/amendments must be made on the electronic document DICTATION DATE: 05/19/191710 ASSISTANT CLINICAL DIRECTOR: CHERRI 05/19/191710 RPT#: [id number] DC DATE: STATUS: ADM IN [facility] [address] [place] [address] END OF REPORT
--- NOTE | 2019-05-19 18:59 | NUR ---
UP TO BATHROOM AND BACK TO BED.PT WITHOUT NEEDS.CONT PLAN OF CARE
[2019-05-19 20:50] VITALS: BP 130/60
--- NOTE | 2019-05-19 21:30 | NUR ---
A&O X 4, UP WITH ASSIST. UTILIZES CALL LIGHT WHEN REQUIRING ASSISTANCE. FSBS 179, REFUSES INSULIN SINCE HE'S READY TO GO TO SLEEP AFTER HIS SCHEDULED GABEPENTIN. REPORTS MILD PAIN TO INCISION TO BACK. DENIES FURTHER NEEDS AT THIS TIME. WILL CONTINUE TO MONITOR.
[2019-05-20 01:04] VITALS: BP 126/70
--- NOTE | 2019-05-20 01:34 | NUR ---
I have reviewed this patient and I concur with the Shift Assessment completed by the Licensed Practical Nurse today this shift.
[2019-05-20 04:42] VITALS: BP 121/73
[2019-05-20 05:16] LABS: BASOPHILS 0.1 % (0-2); EOSINOPHILS 0.8 % (0-7); HEMATOCRIT 33.4 % (42.0-54.0); HEMOGLOBIN 10.5 g/dL (13.5-17.5); IMMATURE GRANULOCYTES 1.8 % (0-5); LYMPHOCYTES 21.6 % (15-50); MCH 28.5 pg (26.0-34.0); MCHC 31.4 g/dL (31.0-37.0); MCV 90.8 fL (80.0-100.0); MEAN PLATELET VOLUME 10.5 fL (7.4-10.4); MONOCYTES 8.3 % (2-11); NEUTROPHILS 67.4 % (40-80); PLATELET COUNT 202 10x3/uL (130-400); RBC 3.68 10x6/uL (4.20-6.10); RDW 13.7 % (11.5-14.5); WBC 8.5 10x3/uL (4.8-10.8)
[2019-05-20 05:43] LABS: INR 1.33 (0.85-1.17); PROTIME 15.9 SECONDS (11.6-15.0)
[2019-05-20 06:02] LABS: ALBUMIN 2.9 g/dL (3.4-5.0); ALKALINE PHOSPHATASE 93 U/L (46-116); ALT (SGPT) 31 U/L (10-68); BILIRUBIN - TOTAL 0.49 mg/dL (0.2-1.3); CALCIUM 8.4 mg/dL (8.5-10.1); CARBON DIOXIDE 28.1 mmol/L (21.0-32.0); CHLORIDE - SERUM 104 mmol/L (98-107); CREATININE - SERUM 0.9 mg/dL (0.6-1.3); MAGNESIUM - SERUM 1.6 mg/dL (1.8-2.4); POTASSIUM - SERUM 3.9 mmol/L (3.5-5.1); PROTEIN - SERUM 5.5 g/dL (6.4-8.2); SODIUM 135 mmol/L (136-145); UREA NITROGEN 19 mg/dL (7-18); eGFR NON AFRICAN AMERICAN 89 mL/min (90-120)
[2019-05-20 06:04] LABS: CALC OSMOLALITY 273 mosm/kg (275-300); GLUCOSE 126 mg/dL (74-106)
[2019-05-20 08:27] VITALS: BP 132/72
--- NOTE | 2019-05-20 09:43 | NUR ---
REHAB PRESCREENING This patient is a good candidate for acute inpatient rehab. Plan to admit to rehab when his physician feels he is appropriate for discharge. Thank you for this referral! Nisa Langley, NDT INSPECTOR Rehab PD
--- NOTE | 2019-05-20 12:24 | MORECARE ---
CASE MANAGEMENT DISCHARGE SUMMARY PATIENT: VICTOR MANUEL PAIGE UNIT: [id number] ADM DATE: 05/16/19 AGE: 68 : 50 SEX: M ROOM/BED: D.2233 AUTHOR: BREANNE JEFFERY PHYSICIAN: REFERRING PHYSICIAN: DALE GREENBERG MD DATE OF SERVICE: 05/20/19 Discharge Plan Patient Name: VICTOR MANUEL PAIGE Facility: [facility]:[place] : 1950 Planned Disposition: Inpatient Rehab Anticipated Discharge Date: Discharge Date: Expected LOS: Initial Reviewer: [email or web address] Initial Review Date: 05/19/2019 Generated: 05/20/19 1:24 pm Comments DCP- Discharge Planning Updated by [email or web address]: Nanda Hall on 05/20/19 11:[address] Received discharge orders for inpatient rehab. I called Racheal in inpatient rehab and they are accepting today. I spoke with the patient and he is in agreement. I called his per his request and informed her and she is in agreement as well. Discharge today to inpatient rehab. DCP- Discharge Planning Updated by [email or web address]: Nanda Hall on 05/19/19 4:[address] Patient Name: VICTOR MANUEL PAIGE Admission Status: Elective Accout number: [id number] Admission Date: 05-16-2019 : 1950 Admission Diagnosis: Attending: YARI, Current LOS: 3 Anticipated DC Date: Planned Disposition: Inpatient Rehab Primary Insurance: MEDICARE A & B Discharge Planning Comments: CM met with patient to complete initial dc planning assessment. CM educated patient on the CM role and verbal consent given by patient to complete assessment. Patient lives at home with his . States he is alone much of the day, because his is at work. CM discussed availability of home health, rehab services, and medical equipment. Patient states he is not getting around well yet, and plans to go to inpatient rehab here at [facility], a rehab screen has been ordered. He will also need a rolling walker on discharge. CM will continue to follow and will assist as needed with dc plans/needs. Chucker: Nanda Hall DCPIA - Discharge Planning Initial Assessment Updated by [email or web address]: Nanda Hall on 05/19/19 5:09 pm * Is the patient Alert and Oriented? Yes * How many steps to enter\exit or inside your home? 3/0 * PCP Dr. Greenberg * Pharmacy [facility] * Preadmission Environment Home with Family * ADLs Partial Dependent * Partial ADLs (Assistance needed) Ambulation * Equipment Cane CPAP * List name and contact numbers for known caregivers / representatives who currently or will assist patient after discharge: Jessica Paige - spouse - [phone] * Verbal permission to speak to the caregivers and representatives has been obtained from the patient. Yes * Community resources currently utilized None * Additional services required to return to the preadmission environment? Yes * Can the patient safely return to the preadmission environment? Yes * Has this patient been hospitalized within the prior 30 days at any hospital? No Coverage Notice Reviewer: [id number] Regulo Hall Notice Issued Date-Time: 05/20/2019 11:27 Notice Type: IM Discharge Notice Notice Delivered To: Patient Relationship to Patient: Self Rn Intensive Care Unit Name: Delivery Method: HAND - Hand Delivered Riana Days: Prior Verbal Notification: Recipient Understood Notice: Yes Recipient Signature: Yes Med Rec Note Co-signed by Attending: Coverage Notice Comment: IMM explained, signed, given, copy placed in MR Last DP export: 05/19/19 4:11 Patient Name: VICTOR MANUEL PAIGE Page [id number] at 1224 All edits/amendments must be made on the electronic document DICTATION DATE: 05/20/191223 CANE PUSHER: CHERRI 05/20/19 1224 RPT#: [id number] DC DATE: STATUS: ADM IN [facility] [address] [place] [address] END OF REPORT
[2019-05-20 12:34] VITALS: BP 138/63
--- NOTE | 2019-05-20 13:28 | NUR ---
REPORT TO REHAB,SPOKE WITH MARÍA
--- NOTE | 2019-05-20 14:35 | NUR ---
DISCHARGE INSTRUCTIONS,STATES UNDERSTANDING. IV OUT X2 WITH CATH TIPS INTACT.
--- NOTE | 2019-05-20 15:05 | NUR ---
TO REHAB VIA WHEELCHAIR
--- NOTE | 2019-05-20 20:19 | OP ---
PATIENT NAME: VICTOR MANUEL PAIGE MEDICAL RECORD: [id number] :[birth year] LOCATION:D.MS [id number] ADMISSION DATE:05/16/19 SURGEON: JULIOCESAR NEGRETE MD DATE OF OPERATION: 05/18/2019 SURGEON: Dr. Juliocesar Negrete PREOPERATIVE DIAGNOSIS: Recurrent disc herniation L3-L4, left. POSTOPERATIVE DIAGNOSIS: Recurrent disc herniation L3-L4, left. PROCEDURE: Redo lumbar laminectomy at L3-L4 on the left with a redo discectomy. DESCRIPTION AND TECHNIQUE: After induction of general endotracheal anesthesia, the patient was rolled prone on a John Paul frame. Lumbar spine was prepped and draped in the usual sterile fashion. A previous incision was incised with Metzenbaum scissors. A dilator was used to advance a METRx retractor to the L3-L4 interspace on the left side. Previous laminectomy was extended laterally. The disc space was explored and free fragment disc herniation was discovered within the spinal canal within the axilla of the left L3 nerve root. Additional material was removed from the spinal canal as well as disc space. Following this, the L3 and L4 nerve roots were decompressed well. Meticulous hemostasis was maintained throughout the wound. The wound was irrigated with copious amounts of Ancef irrigant solution. The fascia was closed with 2-0 Vicryl suture. Subdermal layer was closed with 3-0 Vicryl sutures. Skin was closed with bree. A sterile dressing was applied to the wound. The patient was awakened in good condition and taken to the recovery. All counts were reported as correct. Estimated blood loss was minimal. TRANSINT:[id number] Voice Confirmation ID: [id number] DOCUMENT ID: [id number] JULIOCESAR NEGRETE MD at 2019 CC: [id number] DICTATION DATE: 05/20/19 0715 BUTTON INSPECTOR: 05/20/19 0758 DIS IN 05/20/19 [place] [address]
--- NOTE | 2019-05-21 09:47 | MORECARE ---
CASE MANAGEMENT DISCHARGE SUMMARY PATIENT: VICTOR MANUEL PAIGE UNIT: [id number] ADM DATE: 05/16/19 AGE: 68 : 50 SEX: M ROOM/BED: D.2233 AUTHOR: JOSE DDOC PHYSICIAN: REFERRING PHYSICIAN: DALE GREENBERG MD DATE OF SERVICE: 05/21/19 Discharge Plan Patient Name: VICTOR MANUEL PAIGE Facility: [facility]:[place] : 1950 Planned Disposition: Inpatient Rehab Anticipated Discharge Date: Discharge Date: 05/20/2019 Expected LOS: Initial Reviewer: [id number] Initial Review Date: 05/19/2019 Generated: 05/21/19 10:47 am Comments DCP- Discharge Planning Updated by [id number]: Nanda Hall on 05/20/19 11:[address] Received discharge orders for inpatient rehab. I called Racheal in inpatient rehab and they are accepting today. I spoke with the patient and he is in agreement. I called his per his request and informed her and she is in agreement as well. Discharge today to inpatient rehab. DCP- Discharge Planning Updated by [email or web address]: Nanda Hall on 05/19/19 4:[address] Patient Name: VICTOR MANUEL PAIGE Admission Status: Elective Accout number: [id number] Admission Date: 05-16-2019 : 1950 Admission Diagnosis: Attending: YARI, Current LOS: 3 Anticipated DC Date: Planned Disposition: Inpatient Rehab Primary Insurance: MEDICARE A & B Discharge Planning Comments: CM met with patient to complete initial dc planning assessment. CM educated patient on the CM role and verbal consent given by patient to complete assessment. Patient lives at home with his . States he is alone much of the day, because his is at work. CM discussed availability of home health, rehab services, and medical equipment. Patient states he is not getting around well yet, and plans to go to inpatient rehab here at [facility], a rehab screen has been ordered. He will also need a rolling walker on discharge. CM will continue to follow and will assist as needed with dc plans/needs. Interior Mechanic: Nanda Hall DCPIA - Discharge Planning Initial Assessment Updated by [id number]: Nanda Hall on 05/19/19 5:09 pm * Is the patient Alert and Oriented? Yes * How many steps to enter\exit or inside your home? 3/0 * PCP Dr. Greenberg * Pharmacy [facility] * Preadmission Environment Home with Family * ADLs Partial Dependent * Partial ADLs (Assistance needed) Ambulation * Equipment Cane CPAP * List name and contact numbers for known caregivers / representatives who currently or will assist patient after discharge: Jessica Paige - [facility] - [phone] * Verbal permission to speak to the caregivers and representatives has been obtained from the patient. Yes * Community resources currently utilized None * Additional services required to return to the preadmission environment? Yes * Can the patient safely return to the preadmission environment? Yes * Has this patient been hospitalized within the prior 30 days at any hospital? No Coverage Notice Reviewer: [email or web address] - Nanda Hall Notice Issued Date-Time: 05/20/2019 11:27 Notice Type: IM Discharge Notice Notice Delivered To: Patient Relationship to Patient: Self Osteopathic Resident Name: Delivery Method: HAND - Hand Delivered Riana Days: Prior Verbal Notification: Recipient Understood Notice: Yes Recipient Signature: Yes Med Rec Note Co-signed by Attending: Coverage Notice Comment: IMM explained, signed, given, copy placed in MR Last DP export: 05/20/19 11:24 Patient Name: VICTOR MANUEL PAIGE Page [id number] at 0947 All edits/amendments must be made on the electronic document DICTATION DATE: 05/21/19946 QA ANALYST: CHERRI 05/21/19946 RPT#: [id number] DC DATE:05/20/19 STATUS: DIS IN [facility] [address] [place] [address] END OF REPORT
== END 2019-05-20 15:07 | DRG 519 ==
LOC: D.MS 13:48
PROVIDERS: Family Medicine; Neurological Surgery; ADMIT Family Medicine; ATTEND Family Medicine
PROC: 0SB20ZZ Excision of Lumbar Vertebral Disc, Open Approach (ICD-10-PCS; principal; 2019-05-18 08:00)
DX: M51.16 Intervertebral disc disorders with radiculopathy, lumbar region (principal); M96.842 Postprocedural seroma of a musculoskeletal structure following a musculoskeletal system procedure; D68.2 Hereditary deficiency of other clotting factors; E11.65 Type 2 diabetes mellitus with hyperglycemia; I10 Essential (primary) hypertension; G47.33 Obstructive sleep apnea (adult) (pediatric); K21.9 Gastro-esophageal reflux disease without esophagitis; M54.9 Dorsalgia, unspecified

== ENCOUNTER 2019-05-20 12:36 | Inpatient (IN) | payer MEDICARE, BC ==
[~2019-05-20] VITALS: Ht 177.8 cm; Wt 152.0 kg
[2019-05-20 16:18] VITALS: BP 108/61; BMI 48.1
[2019-05-20 20:56] VITALS: BP 108/61
[2019-05-21 06:35] LABS: BASOPHILS 0.1 % (0-2); EOSINOPHILS 0.9 % (0-7); HEMATOCRIT 33.7 % (42.0-54.0); HEMOGLOBIN 10.6 g/dL (13.5-17.5); IMMATURE GRANULOCYTES 2.3 % (0-5); LYMPHOCYTES 27.5 % (15-50); MCH 28.6 pg (26.0-34.0); MCHC 31.5 g/dL (31.0-37.0); MCV 90.8 fL (80.0-100.0); MEAN PLATELET VOLUME 9.9 fL (7.4-10.4); MONOCYTES 8.7 % (2-11); NEUTROPHILS 60.5 % (40-80); PLATELET COUNT 178 10x3/uL (130-400); RBC 3.71 10x6/uL (4.20-6.10); RDW 13.7 % (11.5-14.5); WBC 7.7 10x3/uL (4.8-10.8)
[2019-05-21 06:49] LABS: CALC OSMOLALITY 280 mosm/kg (275-300); CALCIUM 8.8 mg/dL (8.5-10.1); CARBON DIOXIDE 29.8 mmol/L (21.0-32.0); CHLORIDE - SERUM 105 mmol/L (98-107); CREATININE - SERUM 0.9 mg/dL (0.6-1.3); GLUCOSE 123 mg/dL (74-106); POTASSIUM - SERUM 3.9 mmol/L (3.5-5.1); SODIUM 140 mmol/L (136-145); UREA NITROGEN 16 mg/dL (7-18); eGFR NON AFRICAN AMERICAN 89 mL/min (90-120)
[2019-05-21 08:08] VITALS: BP 139/58
[2019-05-21 14:22] VITALS: Ht 177.8 cm; Wt 152.0 kg
[2019-05-21 20:37] VITALS: BP 145/63
[2019-05-22 08:28] VITALS: BP 149/70
[2019-05-22 21:11] VITALS: BP 139/66
[2019-05-23 06:22] LABS: CALC OSMOLALITY 283 mosm/kg (275-300); CARBON DIOXIDE 29.4 mmol/L (21.0-32.0); CHLORIDE - SERUM 105 mmol/L (98-107); GLUCOSE 129 mg/dL (74-106); POTASSIUM - SERUM 3.9 mmol/L (3.5-5.1); SODIUM 141 mmol/L (136-145); UREA NITROGEN 15 mg/dL (7-18); eGFR NON AFRICAN AMERICAN 79 mL/min (90-120)
[2019-05-23 06:36] LABS: HEMATOCRIT 33.3 % (42.0-54.0); HEMOGLOBIN 10.5 g/dL (13.5-17.5); MCH 28.7 pg (26.0-34.0); MCHC 31.5 g/dL (31.0-37.0); MEAN PLATELET VOLUME 10.6 fL (7.4-10.4); PLATELET COUNT 198 10x3/uL (130-400); RBC 3.66 10x6/uL (4.20-6.10); RDW 13.6 % (11.5-14.5); WBC 6.8 10x3/uL (4.8-10.8)
[2019-05-23 08:00] VITALS: BP 151/79
[2019-05-23 12:32] LABS: EOSINOPHILS 1 % (0-7); LYMPHOCYTES 28 % (15-50); MONOCYTES 16 % (2-11); NEUTROPHILS 50 % (40-80); PLATELET ESTIMATE NORMAL
[2019-05-23 21:05] VITALS: BP 161/81
[2019-05-24 08:00] VITALS: BP 169/78
[2019-05-25 09:03] VITALS: BP 147/70
[2019-05-25 20:00] VITALS: BP 165/79
[2019-05-26 05:22] LABS: BASOPHILS 0.2 % (0-2); EOSINOPHILS 0.6 % (0-7); HEMATOCRIT 34.9 % (42.0-54.0); HEMOGLOBIN 10.9 g/dL (13.5-17.5); IMMATURE GRANULOCYTES 1.3 % (0-5); LYMPHOCYTES 25.4 % (15-50); MCH 28.8 pg (26.0-34.0); MCHC 31.2 g/dL (31.0-37.0); MCV 92.1 fL (80.0-100.0); MEAN PLATELET VOLUME 10.1 fL (7.4-10.4); MONOCYTES 9.2 % (2-11); NEUTROPHILS 63.3 % (40-80); PLATELET COUNT 194 10x3/uL (130-400); RBC 3.79 10x6/uL (4.20-6.10); RDW 13.8 % (11.5-14.5); WBC 6.2 10x3/uL (4.8-10.8)
[2019-05-26 05:38] LABS: CALC OSMOLALITY 288 mosm/kg (275-300); CALCIUM 9.1 mg/dL (8.5-10.1); CARBON DIOXIDE 29.9 mmol/L (21.0-32.0); CHLORIDE - SERUM 107 mmol/L (98-107); CREATININE - SERUM 0.8 mg/dL (0.6-1.3); GLUCOSE 108 mg/dL (74-106); SODIUM 144 mmol/L (136-145); UREA NITROGEN 16 mg/dL (7-18); eGFR NON AFRICAN AMERICAN > 90 mL/min (90-120)
[2019-05-26 08:14] VITALS: BP 151/68
[2019-05-26 21:00] VITALS: BP 155/68
[2019-05-27 08:21] VITALS: BP 152/68
[2019-05-27 21:05] VITALS: BP 165/75
[2019-05-28 06:15] LABS: BASOPHILS 0.3 % (0-2); EOSINOPHILS 0.7 % (0-7); HEMOGLOBIN 10.4 g/dL (13.5-17.5); IMMATURE GRANULOCYTES 1.2 % (0-5); LYMPHOCYTES 26.2 % (15-50); MCH 28.4 pg (26.0-34.0); MCHC 31.5 g/dL (31.0-37.0); MCV 90.2 fL (80.0-100.0); MEAN PLATELET VOLUME 10.4 fL (7.4-10.4); MONOCYTES 8.3 % (2-11); NEUTROPHILS 63.3 % (40-80); PLATELET COUNT 199 10x3/uL (130-400); RBC 3.66 10x6/uL (4.20-6.10); RDW 13.9 % (11.5-14.5)
[2019-05-28 06:42] LABS: CALC OSMOLALITY 289 mosm/kg (275-300); CALCIUM 8.4 mg/dL (8.5-10.1); CARBON DIOXIDE 26.6 mmol/L (21.0-32.0); CHLORIDE - SERUM 108 mmol/L (98-107); CREATININE - SERUM 0.9 mg/dL (0.6-1.3); GLUCOSE 93 mg/dL (74-106); POTASSIUM - SERUM 3.4 mmol/L (3.5-5.1); SODIUM 145 mmol/L (136-145); UREA NITROGEN 16 mg/dL (7-18); eGFR NON AFRICAN AMERICAN 89 mL/min (90-120)
[2019-05-28 08:16] VITALS: BP 123/78
[2019-05-28] MEDS ORDERED: FEXOFENADINE H180 MG PO (08:19)
--- NOTE | 2019-05-28 08:20 | RHP ---
PATIENT: VICTOR MANUEL PAIGE MEDICAL RECORD: [id number] ACCOUNT: [id number] LOCATION:[facility] : [birth year] ADMISSION DATE: 05/20/19 REHABILITATION HISTORY AND PHYSICAL EXAMINATION POST ADMISSION PHYSICIAN EXAMINATION POST ADMISSION PHYSICAL EXAMINATION AND HISTORY AND PHYSICAL DATE OF ADMISSION: 05/20/2019 ADMITTING DIAGNOSIS: Left foraminal disc herniation status post L3-L4 laminectomy. HISTORY OF PRESENT ILLNESS: The patient is a 68-year-old morbidly obese gentleman of Dr. Bass. He was a direct admit from Dr. Diaz's office with herniated disc and lumbar radiculopathy. Dr. Diaz did surgery on him last week. His pain was initially better for about 4 days, but now has worsened. He has been seen in Dr. Diaz's office, sent back to [facility] as a direct admit. He had a fall at home, otherwise no trauma. The patient is unable to walk without assistance due to pain of his lower extremity. He has got a past medical history of diabetes, hypertension, DVT. He has got a factor V clotting disorder, obstructive sleep apnea, chronic back pain. The patient had an MRI, which showed a fluid collection in the epidural space with compression of the thecal sac and left foraminal disc herniation at L3-L4. Dr. Diaz planned wound exploration and culture of the left lumbar laminectomy on May 18. There was diffuse bulging annulus tear at L4-L5 with a paracentral disc protrusion. There is bilateral facet hypertrophy. The patient had mild right paracentral spinal canal stenosis with moderate right-sided neural foraminal narrowing and severe right-sided neural foraminal narrowing. Prior to this admit, he was living at home with his . He was independent with ambulation and ADLs. Although he is unable to walk upright for several months prior to surgery, he had been getting around. Current barriers to discharge include self-care deficits, weakness, unable to do activities of daily living, pain management, supervision with meals. He is min-to-mod assist with ADLs and is only ambulating 15 feet, requiring a rolling walker. He will require intensive inpatient therapy to get back to his prior level of functioning or at least to get him home. Comorbidities include lumbar radiculopathy, postop seroma surgical site, canal stenosis, bilateral neural foraminal narrowing, moderate spinal canal stenosis with moderate right-sided neural foraminal narrowing and severe left-sided neural foraminal narrowing at L3-L4. He has diabetes, hyperglycemia, obstructive sleep apnea, need for CPAP, history of DVT, factor V clotting disorder, chronic back pain, and gastroesophageal reflux disease. PAST MEDICAL HISTORY: Significant for hypertension, DVT, clotting disorder, respiratory problems. He is on CPAP, obesity. He has a history of acid reflux, diverticulitis, chronic back pain. PAST SURGICAL HISTORY: Includes knee surgery, tonsillectomy and adenoidectomy. He has got back surgery now. ALLERGIES: VALIUM. CURRENT MEDICATIONS: Include potassium chloride 20 mEq daily. He is on Actos 15 mg daily, losartan 100 mg daily, furosemide 40 mg daily, Tenormin 50 mg daily, glyburide 3 mg daily before meals. He is on Protonix 40 mg daily, HISTORY AND PHYSICAL [id number] VICTOR MANUEL PAIGE polyethylene glycol 17 grams in 8 ounces of water twice daily, Colace 100 mg b.i.d., Xarelto 20 mg with dinner, Percocet 10/325 one tab every 4-6 hours p.r.n. pain, Glucophage 1000 mg b.i.d. with meals, Dulcolax suppositories p.r.n. HABITS: No current alcohol or tobacco use. FAMILY HISTORY: Noncontributory. SOCIAL HISTORY: The patient hopes to return back home and get back to his prior level of functioning. REVIEW OF SYSTEMS: GENERAL: Does complain of weakness and fatigue. HEENT: Denies cold, cough, or congestion. CARDIOVASCULAR: Denies any chest pain. PHYSICAL EXAMINATION: VITAL SIGNS: Stable. He is noted to be 5.10 and 336 pounds. GENERAL: Otherwise, generally a morbidly obese gentleman, in no acute distress upon exam. HEENT: Normocephalic and atraumatic. Oral mucosa moist. NECK: Supple. No lymphadenopathy. LUNGS: Clear in the upper [place] at this time. No wheezing, rhonchi, or rales. HEART: Regular rate and rhythm. No murmurs, rubs or gallops. ABDOMEN: Soft, benign. Noted to be morbidly obese. EXTREMITIES: No clubbing, cyanosis or edema. NEUROLOGIC: He does have decreased strength in both lower extremities. ASSESSMENT: This is a 68-year-old gentleman admitted to the rehab with a working diagnosis of status post lumbar laminectomy secondary to foraminal disc herniation. The patient has potential to make improvement. We will institute the following multidisciplinary options of physical therapy, occupational therapy, and orthotics. The patient cannot go to a lower level of care such as correction facility. PLAN: 1. Admit to [facility] for; A. Physical therapy to improve gait and transfer skills. B. Occupational therapy to help with activities of daily living. C. Case management to assist with discharge planning and placement options. D. Nutrition to assist with nutritional needs. E. Rehabilitation nursing to assist in monitoring the patient's underlying medical conditions and to assist with any type of bowel or bladder management. 2. We will go ahead and continue on home medications. 3. The patient's estimated length of stay is approximately 7-10 days. 4. We will control pain during his stay and consult neurosurgery to see him if necessary. TRANSINT:[id number] Voice Confirmation ID: [id number] DOCUMENT ID: [id number] VIDHI notes whether there has been none or any medical/functional change since admission: - No change since preadmission screen. HISTORY AND PHYSICAL [id number] VICTOR MANUEL PAIGE attests patient continues to be appropriate for IRF: - Continues to be appropriate. JULIOCESAR EUCEDA MD at 0820 CC: [id number] DICTATION DATE: 05/21/19620 WOOL WASHING MACHINE OPERATOR: 05/21/19 0657 ADM IN [facility] [address] [place] [address]
== END 2019-05-28 13:27 | disposition home health service (06) | DRG 552 ==
LOC: D.REHAB 12:36
PROVIDERS: ADMIT Emergency Medicine; ATTEND Emergency Medicine
DX: M51.26 Other intervertebral disc displacement, lumbar region (principal); D68.2 Hereditary deficiency of other clotting factors; M54.16 Radiculopathy, lumbar region; M48.061 Spinal stenosis, lumbar region without neurogenic claudication; K21.9 Gastro-esophageal reflux disease without esophagitis; G89.29 Other chronic pain; E11.65 Type 2 diabetes mellitus with hyperglycemia; G47.33 Obstructive sleep apnea (adult) (pediatric); E66.01 Morbid (severe) obesity due to excess calories; I10 Essential (primary) hypertension

== ENCOUNTER → 2019-09-30 12:55 | Outpatient (CLI) | payer MEDICARE, BC ==
[2019-05-21 14:22] VITALS: BMI 48.0
[~2019-09-30 12:55] MED LIST changes: +FEXOFENADINE H180 MG PO
== END | disposition home or self-care (01) ==
LOC: D.HCCECHO 12:55
PROVIDERS: ATTEND Internal Medicine Cardiovascular Disease
DX: I25.10 Atherosclerotic heart disease of native coronary artery without angina pectoris (principal)